=== PATIENT | female | born 1970 | race Caucasian/White ===

== ENCOUNTER 2017-03-30 21:46 | Inpatient (IN) | payer BC ==
[~2017-03-30] VITALS: Ht 165.1 cm; Wt 99.3 kg
[~2017-03-30 21:46] MED LIST: BENTYL10 MG PO; BUSPAR5 MG PO; EPINEPHRIN0.15 MG/0. IM; FIORICET 50-301 EACH PO; FISH OIL 1,0001 EAC7 PO; FLONASE16 G1 BOTH NARES; MELATONIN10 M1 PO; NAPROSYN500 MG PO; SINEQUAN10 MG PO; SINGULAIR10 MG PO; TAMIFLU75 MG PO; TYLENOL WITH C1 EACH PO; VENTOLIN HFA18 GM IH; VITAMIN D2000 UNIT PO; ZOCOR40 MG PO; ZOFRAN ODT4 MG PO; ZOLOFT100 MG PO
[2017-03-31 11:52] VITALS: BP 145/82
[2017-03-31 18:41] VITALS: BP 128/73
[2017-03-31 20:44] LABS: HEMATOCRIT 36.8 % (36.0-46.0); MCH 32.7 PG (29.0-34.0); MCHC 32.6 G/DL (30.0-36.0); MCV 100.3 FL (83-99); PLATELET COUNT 274 K/uL (156-360); RBC DIS.WIDTH-CV 12.4 % (11.8-14.6); RBC DIS.WIDTH-SD 45.9 % (39-53); RED BLOOD COUNT 3.67 M/uL (3.80-5.20); WHITE BLOOD COUNT 11.8 K/uL (4.1-10.2)
[2017-03-31 21:00] LABS: CHLORIDE 108 MEQ/L (99-109); CREATININE 0.7 MG/DL (0.6-1.3); GFR ESTIMATE (CALCULATED) > 59 mL/min/; GLUCOSE 149 mg/dL (70-99); POTASSIUM 3.9 MEQ/L (3.7-5.4); SODIUM 140 MEQ/L (136-147); UREA NITROGEN (BUN) 11 mg/dL (9-23)
[2017-03-31 23:56] VITALS: BP 120/62
[2017-04-01 04:27] VITALS: BP 109/58
[2017-04-01 07:11] LABS: HEMATOCRIT 35.2 % (36.0-46.0); HEMOGLOBIN 11.2 G/DL (11.9-15.5); MCH 32.1 PG (29.0-34.0); MCHC 31.8 G/DL (30.0-36.0); MCV 100.9 FL (83-99); PLATELET COUNT 272 K/uL (156-360); RBC DIS.WIDTH-CV 12.5 % (11.8-14.6); RBC DIS.WIDTH-SD 46.5 % (39-53); RED BLOOD COUNT 3.49 M/uL (3.80-5.20); WHITE BLOOD COUNT 9.5 K/uL (4.1-10.2)
[2017-04-01 07:33] LABS: CHLORIDE 107 MEQ/L (99-109); CREATININE 0.8 MG/DL (0.6-1.3); GFR ESTIMATE (CALCULATED) > 59 mL/min/; POTASSIUM 3.8 MEQ/L (3.7-5.4); SODIUM 140 MEQ/L (136-147); UREA NITROGEN (BUN) 8 mg/dL (9-23)
[2017-04-01 07:39] LABS: GLUCOSE 110 mg/dL (70-99)
[2017-04-01 08:00] VITALS: BP 109/53
[2017-04-01 12:00] VITALS: BP 143/71
[2017-04-01 16:00] VITALS: BP 115/65
[2017-04-01 19:35] VITALS: BP 116/57
[2017-04-02 00:03] VITALS: BP 134/69
[2017-04-02 04:13] VITALS: BP 117/70
[2017-04-02 07:10] LABS: HEMATOCRIT 37.1 % (36.0-46.0); HEMOGLOBIN 11.8 G/DL (11.9-15.5); MCH 32.2 PG (29.0-34.0); MCHC 31.8 G/DL (30.0-36.0); MCV 101.1 FL (83-99); PLATELET COUNT 273 K/uL (156-360); RBC DIS.WIDTH-CV 12.5 % (11.8-14.6); RED BLOOD COUNT 3.67 M/uL (3.80-5.20); WHITE BLOOD COUNT 11.7 K/uL (4.1-10.2)
[2017-04-02 07:19] VITALS: BP 123/60
[2017-04-02 07:31] LABS: CHLORIDE 107 MEQ/L (99-109); CREATININE 0.8 MG/DL (0.6-1.3); GFR ESTIMATE (CALCULATED) > 59 mL/min/; GLUCOSE 101 mg/dL (70-99); POTASSIUM 3.6 MEQ/L (3.7-5.4); SODIUM 141 MEQ/L (136-147); UREA NITROGEN (BUN) 7 mg/dL (9-23)
[2017-04-02] MEDS ORDERED: TRAMADOL HCL50 MG PO (08:52)
== END 2017-04-02 10:27 | disposition home or self-care (01) | DRG 743 ==
LOC: ENRESERV 21:46 → 2SOUTH 03-31 08:24 → ENRESERV 03-31 16:14 → 2EAST 03-31 18:37
PROVIDERS: Obstetrics & Gynecology Gynecologic Oncology
DX: D27.0 Benign neoplasm of right ovary (principal); F32.9 Major depressive disorder, single episode, unspecified; K21.9 Gastro-esophageal reflux disease without esophagitis; E78.00 Pure hypercholesterolemia, unspecified; G47.00 Insomnia, unspecified; J45.909 Unspecified asthma, uncomplicated
CPT/HCPCS: 36415; 80048; 85027; 86850; 86900; 86901; 86920; 88108; 88304; 88307; 94760; 94799; J0330; J1100; J1170; J1580; J1885; J2250; J2405; J2710; J2765; J3010; J7050; S0030

== ENCOUNTER 2017-04-11 17:04 | Emergency (ER) | payer BC ==
[~2017-04-11] VITALS: Ht 165.1 cm; Wt 85.6 kg
[~2017-04-11 17:04] MED LIST changes: +TRAMADOL HCL50 MG PO
[2017-04-11 17:39] LABS: HEMATOCRIT 39.1 % (36.0-46.0); HEMOGLOBIN 13.2 G/DL (11.9-15.5); MCH 33.2 PG (29.0-34.0); MCHC 33.8 G/DL (30.0-36.0); MCV 98.2 FL (83-99); RBC DIS.WIDTH-CV 11.5 % (11.8-14.6); RBC DIS.WIDTH-SD 41.9 % (39-53); RED BLOOD COUNT 3.98 M/uL (3.80-5.20); WHITE BLOOD COUNT 14.6 K/uL (4.1-10.2)
[2017-04-11 17:41] LABS: PLATELET COUNT 525 K/uL (156-360)
[2017-04-11 17:46] LABS: ALBUMIN 4.1 g/dL (3.2-4.8); CHLORIDE 103 mEq/L (99-109); POTASSIUM 3.8 mEq/L (3.7-5.4); SODIUM 137 mEq/L (136-147)
[2017-04-11 17:49] LABS: GLUCOSE 82 mg/dL (70-99); TOTAL PROTEIN 7.3 g/dL (6.4-8.3)
[2017-04-11 17:50] LABS: TOTAL BILIRUBIN 0.3 mg/dL (0.0-1.0)
[2017-04-11 17:52] LABS: ALKALINE PHOSPHATASE 128 IU/L (3-129); CREATININE 0.8 mg/dL (0.6-1.3); GFR ESTIMATE (CALCULATED) > 59 mL/min/
[2017-04-11 17:53] LABS: UREA NITROGEN (BUN) 13 mg/dL (9-23)
[2017-04-11 17:54] LABS: AST (GOT) 20 IU/L (2-34)
[2017-04-11 17:55] LABS: ALT (GPT) 29 IU/L (3-49)
[2017-04-11 18:18] LABS: APPEARANCE CLEAR ((CLEAR)); BILIRUBIN NEGATIVE; BLOOD MODERATE; COLOR STRAW ((YELLOW)); GLUCOSE (STRIP) NEGATIVE; KETONES NEGATIVE; LEUKOCYTES MODERATE; NITRITE NEGATIVE; PROTEIN (STRIP) NEGATIVE; SPECIFIC GRAVITY 1.005 (1.000-1.030); UROBILINOGEN 0.2 MG/DL (0.2-1.0)
[2017-04-11 18:22] LABS: BACTERIA 1+ /HPF; EPITHELIAL CELLS RARE /HPF; MUCUS NONE SEEN /LPF; RED BLOOD CELLS 0-5 /HPF (0-5); UCUL ADDED? YES; WHITE BLOOD CELLS 15-20 /HPF (0-5)
[2017-04-11] MEDS ORDERED: FLAGYL500 MG PO (19:47)
[2017-04-11] MEDS ORDERED: CIPRO500 MG PO (19:47)
[2017-04-11] MEDS ORDERED: PERCOCET 5/31 TABLET PO (19:48)
[2017-04-11 21:37] VITALS: BP 136/74
== END 2017-04-11 21:38 | disposition home or self-care (01) ==
LOC: EME 17:04
PROVIDERS: Nurse Practitioner Family
DX: N99.840 Postprocedural hematoma of a genitourinary system organ or structure following a genitourinary system procedure (principal); L02.211 Cutaneous abscess of abdominal wall; Y83.8 Other surgical procedures as the cause of abnormal reaction of the patient, or of later complication, without mention of misadventure at the time of the procedure; G89.18 Other acute postprocedural pain; Z90.710 Acquired absence of both cervix and uterus; K21.9 Gastro-esophageal reflux disease without esophagitis; J45.909 Unspecified asthma, uncomplicated; E78.5 Hyperlipidemia, unspecified; F41.9 Anxiety disorder, unspecified; Z88.2 Allergy status to sulfonamides; Z88.0 Allergy status to penicillin; Z88.6 Allergy status to analgesic agent
CPT/HCPCS: 74177; 80053; 81003; 85027; 87086; 99281; 99285; J0744; J2270; J2405; J7030; S0030